=== PATIENT | male | born 1960 | race Caucasian/White ===

== ENCOUNTER 2016-11-13 10:03 | Outpatient (CLI) | payer OTHER, MEDICAID ==
[~2016-11-13 10:03] MED LIST: ASPI-1063 PO; ATEN50TA PO; BUDE6HFA INH; BUPR-120 PO; CALC500T51 PO; CITA40TA22 PO; DITXL5 PO; DOCU250C71 PO; FLUT1DIS3 IH; HYDR-4037 PO; INSU100V9 SQ; INSU100V9 SUBCUT; LOPE2CAP PO; LOVA10TA55 PO; METF100P3 PO; MULT-634 PO; NOR10 PO; OMEP20CA10 PO; ONDA4TAB22 PO; POLY17PO4 PO; POTA-88 PO; PRED5TAB PO; QUET100T33 PO; SITA50TA3 PO; STA120 PO; TIOT18CA3 IH; TOPI25CA2 PO; TRAM100T13 PO; TRAZ300T11 PO; ZOLP5TAB2 PO; [UNRECOGNIZED DRUG - CODE] PO; [UNRECOGNIZED DRUG - CODE] PO
== END 2016-11-13 19:21 | disposition home or self-care (01) ==
LOC: SRD 10:03
PROVIDERS: ATTEND Family Medicine
DX: S59.902A Unspecified injury of left elbow, initial encounter (principal); X58.XXXA Exposure to other specified factors, initial encounter; Y93.89 Activity, other specified; Y92.89 Other specified places as the place of occurrence of the external cause; Y99.8 Other external cause status

== ENCOUNTER 2017-02-10 15:28 | Inpatient (IN) | payer OTHER, MEDICAID ==
[~2017-02-10] VITALS: Ht 172.7 cm; Wt 102.1 kg
[2017-02-10 16:13] VITALS: BP_SYST 160
[2017-02-10 16:15] VITALS: BP_SYST 152
[2017-02-10] MEDS ORDERED: KCL 20 mEq in 0.45% NS 1000 mL 1,000 ML IV SCH (18:00)
[2017-02-10] MEDS ORDERED: ONDANSETRON 4 MG ODT TAB PO PRN (18:00)
[2017-02-10] MEDS ORDERED: TIOTROPIUM BROMIDE 18 mcg/INHALATION (CAPSULE) IH PRN (18:00)
[2017-02-10] MEDS ORDERED: PANTOPRAZOLE SODIUM 40 MG/VIAL (PROTONIX) IVP ONE (18:00)
[2017-02-10] MEDS ORDERED: POLYETHYLENE GLYCOL 3350, 17 GM/ POWD.PACK PO PRN (18:00)
[2017-02-10] MEDS ORDERED: ONDANSETRON HCL 4 MG/2 ML VIAL IVP PRN (18:00)
[2017-02-10 18:33] LABS: BASOPHILS # (AUTO) 0.1 K/uL (0.0-0.2); BASOPHILS % (AUTO) 0.6 % (0.0-2.0); EOSINOPHILS # (AUTO) 0.4 K/uL (0.0-0.4); EOSINOPHILS % (AUTO) 4.4 % (0.0-4.0); HEMATOCRIT 33.9 % (36-54); HEMOGLOBIN 11.1 g/dL (14.0-18.0); LYMPHOCYTES # (AUTO) 1.8 K/uL (1.0-5.5); MEAN CORPUSCULAR HEMOGLOBIN 28 pg (27-31); MEAN CORPUSCULAR HGB CONC 33 % (32-36); MEAN CORPUSCULAR VOLUME 85 fL (79.0-98.0); MONOCYTES # (AUTO) 0.9 K/uL (0.0-1.0); MONOCYTES % (AUTO) 10.3 % (1.7-9.3); NEUTROPHILS # (AUTO) 5.4 K/uL (1.8-7.7); NEUTROPHILS % (AUTO) 63.7 % (40.0-70.0); PLATELET COUNT (AUTO) 147 K/uL (130-430); RED BLOOD CELL COUNT(AUTO) 3.97 MIL/uL (4.2-6.2); RED CELL DISTRIBUTION WIDTH 14.5 % (9.0-15.0); WHITE BLOOD COUNT (AUTO) 8.6 K/uL (4.8-10.8)
[2017-02-10 18:50] LABS: ALANINE AMINOTRANSFERASE 39 U/L (12-78); ALBUMIN 3.4 g/dL (3.4-4.8); AMYLASE 28 U/L (0-100); ASPARTATE AMINOTRANSFERASE 76 U/L (10-37); CALCIUM 8.6 mg/dL (8.4-11.0); CHLORIDE 108 mmol/L (98-107); GLUCOSE 111 mg/dL (70-99); LIPASE 166 U/L (73-393); POTASSIUM 3.4 mmol/L (3.5-5.1); SODIUM SERUM 140 mmol/L (136-145); TOTAL BILIRUBIN 0.3 mg/dL (0.0-1.0); TOTAL PROTEIN, SERUM 6.2 g/dL (6.4-8.3); UREA NITROGEN, BLOOD 42 mg/dL (8-21)
[2017-02-10 18:51] LABS: GFR AFRICAN AMERICAN 47 mL/min (>90)
[2017-02-10 18:52] LABS: ANION GAP < 3 (5-15)
[2017-02-10 18:55] LABS: PROTHROMBIN TIME 10.8 SECS (9.5-12.5)
[2017-02-10 20:00] VITALS: BP_SYST 153
[2017-02-10] MEDS: IPRATROPIUM BROM 0.5 MG/2.5 ML VIAL.NEB (ATROVENT) INH SCH (20:12)
[2017-02-10] MEDS ORDERED: INSULIN GLARGINE 100 UNITS/ML 10 ML VIAL SUBCUT SCH (21:00)
[2017-02-10] MEDS: DOCUSATE SODIUM 250 MG CAPSULE PO SCH (21:00)
[2017-02-10] MEDS: QUEtiapine FUMARATE 100 MG TABLET PO SCH (21:00)
[2017-02-10] MEDS: OXYBUTYNIN CHLORIDE 5 MG TABLET PO SCH (21:00)
[2017-02-10] MEDS: CALCIUM 500 MG/TAB PO SCH (21:00)
[2017-02-10] MEDS: ZOLPIDEM TARTRATE 5 MG TABLET PO SCH (21:00)
[2017-02-10] MEDS ORDERED: BUDESONIDE/FORMOTEROL 160-4.5 mCg, 6 GM INHALER INH SCH (21:00)
[2017-02-10 21:52] VITALS: BP_SYST 152
[2017-02-10] MEDS: HYDROmorphone 2 MG/ML VIAL IVP PRN (22:20)
[2017-02-10] MEDS ORDERED: metroNIDAZOLE 500 mg/NS 200 ML IV ONE (22:40)
[2017-02-10] MEDS: metroNIDAZOLE 500 mg/NS 100 ML IV SCH (23:43)
[2017-02-10] MEDS: KCL 20 mEq in D5NS 1000 mL 1,000 ML IV SCH (23:50)
[2017-02-11 01:25] VITALS: BP_SYST 162
[2017-02-11 06:10] VITALS: BP_SYST 146
[2017-02-11] MEDS: metroNIDAZOLE 500 mg/NS 100 ML IV SCH ×3 (06:13→23:47)
[2017-02-11] MEDS: INSULIN REGULAR, HUMAN 100 UNITS/ML, 10 ML VIAL (novoLIN R) SUBCUT PRN (06:20)
[2017-02-11] MEDS: IPRATROPIUM BROM 0.5 MG/2.5 ML VIAL.NEB (ATROVENT) INH SCH ×4 (07:21→20:05)
[2017-02-11 08:34] VITALS: BP_SYST 144
[2017-02-11] MEDS: ASPIRIN 81 MG TABLET(ECOTRIN) PO SCH (09:00)
[2017-02-11] MEDS ORDERED: FLUTICASONE 250 mCg/SALMETEROL 50 mCg DISKUS W.DEV IH SCH (09:00)
[2017-02-11] MEDS: PREDNISONE 5 MG TABLET PO SCH (09:00)
[2017-02-11] MEDS: CALCIUM 500 MG/TAB PO SCH ×3 (09:00→21:05)
[2017-02-11] MEDS: ATENOLOL 50 MG TABLET (TENORMIN) PO SCH (09:00)
[2017-02-11] MEDS: OXYBUTYNIN CHLORIDE 5 MG TABLET PO SCH ×2 (09:00→20:40)
[2017-02-11] MEDS: LOPERAMIDE HCL 2 MG CAPSULE PO SCH (09:00)
[2017-02-11] MEDS: DOCUSATE SODIUM 250 MG CAPSULE PO SCH ×3 (09:00→21:04)
[2017-02-11] MEDS: NATEGLINIDE 120 MG TABLET PO SCH (09:00)
[2017-02-11] MEDS: buPROPion HCL 150 MG XL TAB PO SCH (09:00)
[2017-02-11] MEDS ORDERED: OXYBUTYNIN CHLORIDE 5 MG XL TAB PO SCH (09:00)
[2017-02-11] MEDS: FLUTICASONE/VILANTEROL 1 EACH BLST.W.DEV INH SCH (09:00)
[2017-02-11] MEDS ORDERED: INSULIN GLARGINE 100 UNITS/ML 10 ML VIAL SQ SCH (09:00)
[2017-02-11] MEDS: MULTIVITAMINS TAB 1 TABLET PO SCH (09:00)
[2017-02-11] MEDS: CITALOPRAM HYDROBROMIDE 20 MG TABLET PO SCH (09:00)
[2017-02-11] MEDS ORDERED: INSULIN GLARGINE 100 UNITS/ML 10 ML VIAL SUBCUT SCH (09:00)
[2017-02-11] MEDS ORDERED: OMEPRAZOLE 20 MG CAPSULE.DR (PriLOSEC) PO SCH (09:00)
[2017-02-11] MEDS: amLODIPine BESYLATE 10 MG TABLET PO SCH (09:00)
[2017-02-11] MEDS: PANTOPRAZOLE SODIUM 40 MG/VIAL (PROTONIX) IVP SCH (09:00)
[2017-02-11] MEDS: KCL 20 mEq in D5NS 1000 mL 1,000 ML IV SCH ×2 (09:50→23:49)
[2017-02-11 16:51] VITALS: BP_SYST 136
[2017-02-11 19:05] VITALS: BP_SYST 161
[2017-02-11] MEDS: ZOLPIDEM TARTRATE 5 MG TABLET PO SCH (20:40)
[2017-02-11] MEDS: QUEtiapine FUMARATE 100 MG TABLET PO SCH (20:41)
[2017-02-11] MEDS: hydrALAZINE HCL 25 MG TABLET PO PRN (20:42)
[2017-02-11] MEDS: LEVOFLOXACIN 500 MG/D5W 100 ML IV SCH (20:42)
[2017-02-12 04:00] VITALS: BP_SYST 161
[2017-02-12 04:24] LABS: BILIRUBIN,URINE NEGATIVE (NEGATIVE); BLOOD, URINE NEGATIVE (NEGATIVE); CLARITY/URINE CLEAR (CLEAR); COLOR,URINE YELLOW (YELLOW); GLUCOSE,URINE NEGATIVE (NEGATIVE); KETONES,URINE NEGATIVE (NEGATIVE); LEUKOCYTE ESTERASE ,URINE NEGATIVE (NEGATIVE); NITRITE, URINE NEGATIVE (NEGATIVE); PROTEIN URINE NEGATIVE (NEGATIVE); UROBILINOGEN,URINE 0.2 (0.2-1.0)
[2017-02-12] MEDS: metroNIDAZOLE 500 mg/NS 100 ML IV SCH ×3 (05:28→22:55)
[2017-02-12] MEDS: hydrALAZINE HCL 25 MG TABLET PO PRN ×2 (05:39→21:44)
[2017-02-12 06:27] LABS: CALCIUM 8.9 mg/dL (8.4-11.0); CREATININE 1.4 mg/dL (0.55-1.30)
[2017-02-12 06:28] LABS: INR 1.1 (0.80-1.20); PROTHROMBIN TIME 11.6 SECS (9.5-12.5)
[2017-02-12 06:39] LABS: BASOPHILS # (AUTO) 0.1 K/uL (0.0-0.2); BASOPHILS % (AUTO) 0.9 % (0.0-2.0); EOSINOPHILS # (AUTO) 0.3 K/uL (0.0-0.4); EOSINOPHILS % (AUTO) 4.1 % (0.0-4.0); HEMATOCRIT 39.9 % (36-54); HEMOGLOBIN 13.3 g/dL (14.0-18.0); LYMPHOCYTES # (AUTO) 1.5 K/uL (1.0-5.5); LYMPHOCYTES % (AUTO) 22.8 % (20.5-51.5); MEAN CORPUSCULAR HEMOGLOBIN 28 pg (27-31); MEAN CORPUSCULAR HGB CONC 33 % (32-36); MEAN CORPUSCULAR VOLUME 86 fL (79.0-98.0); MONOCYTES # (AUTO) 0.8 K/uL (0.0-1.0); MONOCYTES % (AUTO) 12.6 % (1.7-9.3); NEUTROPHILS % (AUTO) 59.6 % (40.0-70.0); PLATELET COUNT (AUTO) 181 K/uL (130-430); RED BLOOD CELL COUNT(AUTO) 4.66 MIL/uL (4.2-6.2); RED CELL DISTRIBUTION WIDTH 14.1 % (9.0-15.0); WHITE BLOOD COUNT (AUTO) 6.7 K/uL (4.8-10.8)
[2017-02-12 07:08] LABS: POTASSIUM 2.8 mmol/L (3.5-5.1)
[2017-02-12] MEDS ORDERED: POTASSIUM CHLORIDE 40 MEQ in NS 250 ML IV ONE (07:15)
[2017-02-12 07:28] VITALS: BP_SYST 159
[2017-02-12] MEDS: IPRATROPIUM BROM 0.5 MG/2.5 ML VIAL.NEB (ATROVENT) INH SCH ×3 (07:40→20:00)
[2017-02-12] MEDS: FLUTICASONE/VILANTEROL 1 EACH BLST.W.DEV INH SCH (09:00)
[2017-02-12] MEDS: buPROPion HCL 150 MG XL TAB PO SCH (09:00)
[2017-02-12] MEDS: ATENOLOL 50 MG TABLET (TENORMIN) PO SCH (11:12)
[2017-02-12] MEDS: amLODIPine BESYLATE 10 MG TABLET PO SCH (11:13)
[2017-02-12] MEDS: KCL 20 mEq in D5NS 1000 mL 1,000 ML IV SCH ×2 (11:15→22:00)
[2017-02-12] MEDS: INSULIN REGULAR, HUMAN 100 UNITS/ML, 10 ML VIAL (novoLIN R) SUBCUT PRN ×2 (12:32→21:50)
[2017-02-12 12:35] VITALS: BP_SYST 146
[2017-02-12] MEDS ORDERED: KETOROLAC TROMETHAMINE 30 MG VIAL IVP ONE (13:50)
[2017-02-12] MEDS ORDERED: LR 1,000 ML IV.SOLN IV ONE (13:50)
[2017-02-12] MEDS ORDERED: NS IRRIG SOLN 1000 ML IR ONE (13:50)
[2017-02-12] MEDS ORDERED: PROPOFOL 200MG/ 20ML VIAL (DIPRIVAN) IV ONE (13:50)
[2017-02-12] MEDS ORDERED: ROCURONIUM BROMIDE 10 MG/ML (ZEMURON) IV ONE (13:50)
[2017-02-12] MEDS ORDERED: metroNIDAZOLE 500 mg/NS 100 mL IVPB IV ONE (13:50)
[2017-02-12] MEDS ORDERED: SEVOFLURANE 15 MIN GAS INH ONE (13:50)
[2017-02-12] MEDS ORDERED: MIDAZOLAM HCL 5 MG/5 ML VIAL IVP ONE (13:50)
[2017-02-12] MEDS ORDERED: DEXAMETHASONE SOD PHOSPHATE 4 MG/ML VIAL IVP ONE (13:50)
[2017-02-12] MEDS ORDERED: fentaNYL CITRATE 250 MCG/5 ML AMP IV ONE (13:50)
[2017-02-12] MEDS ORDERED: LR 1,000 ML IV SCH (14:23)
[2017-02-12] MEDS ORDERED: HYDROmorphone 2 MG/ML VIAL IVP PRN ×2 (14:30)
[2017-02-12] MEDS ORDERED: MEPERIDINE HCL/PF 25 MG/ML DISP.SYRIN IVP PRN (14:30)
[2017-02-12] MEDS ORDERED: HYDROmorphone 1 MG INJ. 1 MG/ML AMPUL IVP PRN (14:30)
[2017-02-12] MEDS: CITALOPRAM HYDROBROMIDE 20 MG TABLET PO SCH (16:48)
[2017-02-12] MEDS: LOPERAMIDE HCL 2 MG CAPSULE PO SCH (16:49)
[2017-02-12] MEDS: OXYBUTYNIN CHLORIDE 5 MG TABLET PO SCH ×2 (16:49→21:45)
[2017-02-12] MEDS: ASPIRIN 81 MG TABLET(ECOTRIN) PO SCH (16:49)
[2017-02-12] MEDS: DOCUSATE SODIUM 250 MG CAPSULE PO SCH ×3 (16:49→21:00)
[2017-02-12] MEDS: CALCIUM 500 MG/TAB PO SCH ×3 (16:50→21:46)
[2017-02-12] MEDS: PANTOPRAZOLE SODIUM 40 MG/VIAL (PROTONIX) IVP SCH (16:54)
[2017-02-12] MEDS: PREDNISONE 5 MG TABLET PO SCH (16:55)
[2017-02-12] MEDS: MULTIVITAMINS TAB 1 TABLET PO SCH (17:08)
[2017-02-12] MEDS: NATEGLINIDE 120 MG TABLET PO SCH (17:10)
[2017-02-12 20:00] VITALS: BP_SYST 159
[2017-02-12] MEDS: ZOLPIDEM TARTRATE 5 MG TABLET PO SCH (21:45)
[2017-02-12] MEDS: QUEtiapine FUMARATE 100 MG TABLET PO SCH (21:45)
[2017-02-12] MEDS: LEVOFLOXACIN 500 MG/D5W 100 ML IV SCH (22:00)
[2017-02-12] MEDS: HYDROmorphone 2 MG/ML VIAL IVP PRN (22:49)
[2017-02-13 00:23] VITALS: BP_SYST 129
[2017-02-13 04:22] VITALS: BP_SYST 149
[2017-02-13] MEDS: metroNIDAZOLE 500 mg/NS 100 ML IV SCH ×3 (05:02→23:58)
[2017-02-13] MEDS: KCL 20 mEq in D5NS 1000 mL 1,000 ML IV SCH ×2 (05:02→16:17)
[2017-02-13] MEDS: HYDROmorphone 2 MG/ML VIAL IVP PRN (06:14)
[2017-02-13 06:25] LABS: BASOPHILS % (AUTO) 0.2 % (0.0-2.0); EOSINOPHILS % (AUTO) 0.2 % (0.0-4.0); HEMATOCRIT 35.9 % (36-54); LYMPHOCYTES # (AUTO) 1.1 K/uL (1.0-5.5); LYMPHOCYTES % (AUTO) 11.6 % (20.5-51.5); MEAN CORPUSCULAR HEMOGLOBIN 29 pg (27-31); MEAN CORPUSCULAR HGB CONC 33 % (32-36); MEAN CORPUSCULAR VOLUME 86 fL (79.0-98.0); MONOCYTES % (AUTO) 10.5 % (1.7-9.3); NEUTROPHILS # (AUTO) 7.3 K/uL (1.8-7.7); NEUTROPHILS % (AUTO) 77.5 % (40.0-70.0); PLATELET COUNT (AUTO) 181 K/uL (130-430); RED BLOOD CELL COUNT(AUTO) 4.17 MIL/uL (4.2-6.2); RED CELL DISTRIBUTION WIDTH 14.4 % (9.0-15.0); WHITE BLOOD COUNT (AUTO) 9.4 K/uL (4.8-10.8)
[2017-02-13 06:44] LABS: ALBUMIN 3.5 g/dL (3.4-4.8); CALCIUM 9.1 mg/dL (8.4-11.0); CREATININE 1.5 mg/dL (0.55-1.30); POTASSIUM 4.4 mmol/L (3.5-5.1); TOTAL BILIRUBIN 0.4 mg/dL (0.0-1.0); TOTAL PROTEIN, SERUM 6.4 g/dL (6.4-8.3)
[2017-02-13] MEDS: IPRATROPIUM BROM 0.5 MG/2.5 ML VIAL.NEB (ATROVENT) INH SCH ×4 (07:26→20:20)
[2017-02-13 08:20] VITALS: BP_SYST 150
[2017-02-13] MEDS ORDERED: HYDROcodone/ACETAMIN 5-325 MG TAB (NORCO/ VICODIN) PO PRN (08:30)
[2017-02-13] MEDS: NATEGLINIDE 120 MG TABLET PO SCH (08:59)
[2017-02-13] MEDS: FLUTICASONE/VILANTEROL 1 EACH BLST.W.DEV INH SCH (09:00)
[2017-02-13] MEDS: LOPERAMIDE HCL 2 MG CAPSULE PO SCH (09:00)
[2017-02-13] MEDS: ASPIRIN 81 MG TABLET(ECOTRIN) PO SCH (09:00)
[2017-02-13] MEDS: DOCUSATE SODIUM 250 MG CAPSULE PO SCH ×3 (09:00→23:18)
[2017-02-13] MEDS: OXYBUTYNIN CHLORIDE 5 MG TABLET PO SCH ×2 (09:01→23:17)
[2017-02-13] MEDS: CITALOPRAM HYDROBROMIDE 20 MG TABLET PO SCH (09:01)
[2017-02-13] MEDS: ATENOLOL 50 MG TABLET (TENORMIN) PO SCH (09:01)
[2017-02-13] MEDS: MULTIVITAMINS TAB 1 TABLET PO SCH (09:02)
[2017-02-13] MEDS: CALCIUM 500 MG/TAB PO SCH ×3 (09:02→23:18)
[2017-02-13] MEDS: PREDNISONE 5 MG TABLET PO SCH (09:02)
[2017-02-13] MEDS: amLODIPine BESYLATE 10 MG TABLET PO SCH (09:02)
[2017-02-13] MEDS: buPROPion HCL 150 MG XL TAB PO SCH (09:08)
[2017-02-13] MEDS: PANTOPRAZOLE SODIUM 40 MG/VIAL (PROTONIX) IVP SCH (09:31)
[2017-02-13 10:13] VITALS: BP_SYST 150
[2017-02-13] MEDS: INSULIN REGULAR, HUMAN 100 UNITS/ML, 10 ML VIAL (novoLIN R) SUBCUT PRN (11:39)
[2017-02-13 12:46] VITALS: BP_SYST 149
[2017-02-13 16:01] VITALS: BP_SYST 148
[2017-02-13] MEDS: LEVOFLOXACIN 500 MG/D5W 100 ML IV SCH (20:54)
[2017-02-13] MEDS: MUPIROCIN 2% TOPICAL OINTMENT 22 GM TP SCH (21:00)
[2017-02-13] MEDS: QUEtiapine FUMARATE 100 MG TABLET PO SCH (23:18)
[2017-02-13] MEDS: ZOLPIDEM TARTRATE 5 MG TABLET PO SCH (23:18)
[2017-02-14] MEDS: KCL 20 mEq in D5NS 1000 mL 1,000 ML IV SCH
[2017-02-14 05:54] VITALS: BP_SYST 139
[2017-02-14] MEDS: metroNIDAZOLE 500 mg/NS 100 ML IV SCH (06:00)
[2017-02-14] MEDS: IPRATROPIUM BROM 0.5 MG/2.5 ML VIAL.NEB (ATROVENT) INH SCH ×2 (07:00→11:00)
[2017-02-14] MEDS: MULTIVITAMINS TAB 1 TABLET PO SCH (07:40)
[2017-02-14] MEDS: CALCIUM 500 MG/TAB PO SCH (07:41)
[2017-02-14] MEDS: ATENOLOL 50 MG TABLET (TENORMIN) PO SCH (07:41)
[2017-02-14] MEDS: CITALOPRAM HYDROBROMIDE 20 MG TABLET PO SCH (07:41)
[2017-02-14] MEDS: buPROPion HCL 150 MG XL TAB PO SCH (07:42)
[2017-02-14] MEDS: LOPERAMIDE HCL 2 MG CAPSULE PO SCH (07:42)
[2017-02-14] MEDS: OXYBUTYNIN CHLORIDE 5 MG TABLET PO SCH (07:42)
[2017-02-14] MEDS: ASPIRIN 81 MG TABLET(ECOTRIN) PO SCH (07:42)
[2017-02-14] MEDS: NATEGLINIDE 120 MG TABLET PO SCH (07:42)
[2017-02-14] MEDS: DOCUSATE SODIUM 250 MG CAPSULE PO SCH (07:42)
[2017-02-14] MEDS: PREDNISONE 5 MG TABLET PO SCH (07:42)
[2017-02-14] MEDS: amLODIPine BESYLATE 10 MG TABLET PO SCH (07:42)
[2017-02-14] MEDS: FLUTICASONE/VILANTEROL 1 EACH BLST.W.DEV INH SCH (07:43)
[2017-02-14] MEDS: PANTOPRAZOLE SODIUM 40 MG/VIAL (PROTONIX) IVP SCH (07:43)
[2017-02-14] MEDS: MUPIROCIN 2% TOPICAL OINTMENT 22 GM TP SCH (07:45)
[2017-02-14 08:11] VITALS: BP_SYST 192
[2017-02-14] MEDS: hydrALAZINE HCL 25 MG TABLET PO PRN (08:11)
[2017-02-14] MEDS ORDERED: QUEtiapine FUMARATE 25 MG TABLET PO SCH (15:00)
[2017-02-14] MEDS ORDERED: QUEtiapine FUMARATE 100 MG TABLET PO SCH (21:00)
[2017-02-15] MEDS ORDERED: CITALOPRAM HYDROBROMIDE 20 MG TABLET PO SCH (09:00)
[2017-02-15] MEDS ORDERED: LEVOFLOXACIN 500 MG TABLET PO SCH (10:00)
== END 2017-02-14 15:03 | DRG 418 ==
LOC: SMU 15:47 → STU 02-12 15:14 → SMU 02-13 17:32
PROVIDERS: ADMIT Family Medicine; ATTEND Family Medicine
PROC: 0FT44ZZ Resection of Gallbladder, Percutaneous Endoscopic Approach (ICD-10-PCS; principal; 2017-02-12 14:00)
DX: K80.12 Calculus of gallbladder with acute and chronic cholecystitis without obstruction (principal); N17.9 Acute kidney failure, unspecified; E66.9 Obesity, unspecified; E11.9 Type 2 diabetes mellitus without complications; J44.9 Chronic obstructive pulmonary disease, unspecified; I25.10 Atherosclerotic heart disease of native coronary artery without angina pectoris; I10 Essential (primary) hypertension; E78.5 Hyperlipidemia, unspecified; Z68.34 Body mass index [BMI] 34.0-34.9, adult; Z79.82 Long term (current) use of aspirin; Z79.899 Other long term (current) drug therapy; Z79.4 Long term (current) use of insulin; Z95.0 Presence of cardiac pacemaker
CPT/HCPCS: 36415; 71010; 78226; 80048; 80053; 81003; 82150-TC; 82962; 83690-TC; 84132-TC; 85025; 85610-TC; 85730-TC; 87070; 87081; 88304; 93005; 94010; 94640; 94760; A9537; C1727; C9113; J1100; J1170; J1815; J1885; J1956; J2250; J2704; J3010; J3480; J3490; J7050; J7120; J7512